=== PATIENT | female | born 1960 | race Caucasian/White ===

== ENCOUNTER 2024-01-05 08:23 | Observation (INO) | payer BC, MEDICARE ==
[2024-01-05] MEDS ORDERED: Sodium Chloride 0.9% 1000 ML 1,000 ML ONE (08:45)
[2024-01-05] MEDS ORDERED: BABY ASPIRIN 81 MG CHEW ONE (08:45)
[2024-01-05] MEDS ORDERED: XYLOCAINE VISCOUS 2% 15 ML CUP ONE (08:45)
[2024-01-05] MEDS ORDERED: Zofran 4 MG/2 ML VIAL ONE ×2 (08:45→08:50)
[2024-01-05] MEDS ORDERED: MAALOX ES 30 ML UNIT DOSE ONE (08:45)
[2024-01-05] MEDS ORDERED: MORPHINE SULFATE 4 MG INJ ONE (08:45)
[2024-01-05] MEDS: Zofran 4 MG/2 ML VIAL IV ONE (08:51)
--- NOTE | 2024-01-05 08:51 | ERPHSYRPT ---
- History of Present Illness Time Seen by Provider: 01/05/24 08:24 Source: patient Exam Limitations: no limitations Patient Subjective Stated Complaint: Pt began with a fever on Friday and began vomiting on Triage Nursing Assessment: Pt was brought to the ER by her [id number], hypertensive, rates pain as 6/10, N&V, severe heartburn, epigastric pain, last intake yesterday PM, denies diarrhea, hx of liver transplant Physician History: Patient here with midsternal chest pain. Started last night. Nausea and vomiting. However, patient states that she has felt unwell for almost a week. No falls no trauma. Patient states it feels like "heartburn". However, she states that she is never had heartburn before. There is no fevers no chills. States last p.o. intake was last night. Otherwise she is fully up-to-date on all her vaccinations, no signs or symptoms of a UTI. Allergies/Adverse Reactions: No Known Drug Allergies Allergy (Verified 01/05/24 08:35) Home Medications: Aripiprazole [Abilify] 2 mg PO DAILY 01/05/24 [History] Aspirin 81 mg PO DAILY 01/05/24 [History] Atorvastatin Calcium 40 mg PO DAILY 01/05/24 [History] Biotin 1 mg PO BID 01/05/24 [History] Escitalopram Oxalate 20 mg PO DAILY 01/05/24 [History] Furosemide [Lasix] 40 mg PO UD PRN 01/05/24 [History] Insulin Aspart 24 unit SQ TID 01/05/24 [History] Insulin Glargine,Hum.rec.anlog [Basaglar Kwikpen U-100] 0 unit SQ BID 01/05/24 [History] Lisinopril 10 mg [Zestril 10 MG] 10 mg PO DAILY 01/05/24 [History] Methylphenidate HCl [Methylphenidate ER] 10 mg PO BID 01/05/24 [History] Tacrolimus 2 mg PO BID 01/05/24 [History] Tirzepatide [Mounjaro] 5 mg SQ WEEKLY 01/05/24 [History] mycophenolate mofetiL [Mycophenolate Mofetil] 500 mg PO BID 01/05/24 [History] Hx Tetanus, Diphtheria Vaccination/Date Given: Yes Hx Influenza Vaccination/Date Given: Yes Hx Pneumococcal Vaccination/Date Given: No Travel Risk - International Travel Have you traveled outside of the country in past 3 weeks: No - Emerging Infectious Disease Are you exhibiting symptoms associated with any current EIDs: Yes Symptoms: Abdominal Pain, Vomitting - Past Medical History Pertinent Past Medical History: Yes Neurological History: No Pertinent History ENT History: No Pertinent History Cardiac History: High Cholesterol, Hypertension Respiratory History: No Pertinent History Endocrine Medical History: Diabetes Type II, Liver Disease Musculoskeletal History: Fractures GI Medical History: Cirrhosis, Other History: No Pertinent History Psycho-Social History: No Pertinent History Female Reproductive Disorders: No Pertinent History Other Medical History: FX LEFT HUMERUS WITH ORIF 2019, LIVER TRANSPLANT 06/16/2020 - Past Surgical History Past Surgical History: Yes Neuro Surgical History: No Pertinent History Cardiac: No Pertinent History Respiratory: No Pertinent History Gastrointestinal: Liver Transplant Genitourinary: No Pertinent History Musculoskeletal: Other Female Surgical History: Section Other Surgical History: place in left shoulder, liver transplant 2020, FX LEFT HUMERUS WITH ORIF 2019 - Social History Smoking Status: Never smoker Exposure to second hand smoke: No Drug Use: none Patient Lives Alone: No - Social Determinants of Health Will the patient participate in the screening: Yes Do you worry about a steady place to live?: No Do you have any problems with any of the following?: No known problems In the past 12 months,have you had to go without utilities?: No Transportation Issues: No Has anyone in your support network made you feel unsafe?: No Have you or anyone in your house had to go without enough: No - Nursing Vital Signs Nursing Vital Signs: Initial Vital Signs Temperature 98.0 F 01/05/24 08:28 Pulse Rate 83 01/05/24 08:28 Blood Pressure 142/98 01/05/24 08:28 O2 Sat by Pulse Oximetry 99 01/05/24 08:28 Pain Scale Pain Intensity 7 - Physical Exam SpO2 Interpretation: normal SpO2: 99 Comments: 01/05/24 08:50 Review of Systems Constitutional: Negative for fever. HENT: Negative for congestion. Respiratory: Negative for shortness of breath. Cardiovascular: Negative for chest pain. Gastrointestinal: Nausea and vomiting Genitourinary: Negative for dysuria. Musculoskeletal: Negative for back pain. Skin: Negative for rash. Neurological: Negative for headaches. Psychiatric/Behavioral: Negative for behavioral problems. All other systems reviewed and are negative. Physical Exam Vitals signs and nursing note reviewed. Constitutional: Appearance: Patient is well-developed. HENT: Head: Normocephalic and atraumatic. Eyes: Conjunctiva/sclera: Conjunctivae normal. Neck: Musculoskeletal: Normal range of motion. Trachea: No tracheal deviation. Cardiovascular: Rate and Rhythm: Normal rate. No reproducible chest pain Pulmonary: Effort: Pulmonary effort is normal. No respiratory distress. Abdominal: Palpations: Abdomen is soft. Diffuse nonspecific abdominal tenderness Musculoskeletal: General: No deformity. Skin: General: Skin is warm and dry. 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 Care 01/05/24 08:42 Active Code Status Order ROUTINE Care 01/05/24 12:23 Active EKG-ER Only STAT Care 01/05/24 08:41 Active IV Insertion STAT Care 01/05/24 08:[address] in Observation ROUTINE Care 01/05/24 12:24 Active ABDOMEN AND PELVIS W CONTRAST [CT] Stat Exams 01/05/24 09:47 Completed CHEST 1 VIEW (PORTABLE) Stat Exams 01/05/24 08:41 Completed CHEST WITH CONTRAST [CT] Stat Exams 01/05/24 09:47 Completed CBC W DIFF Stat Lab 01/05/24 08:40 Completed CK-Creatinine Phosphokinase Stat Lab 01/05/24 08:40 Completed CMP Stat Lab 01/05/24 08:40 Completed D-DIMER QUANTITATIVE Stat Lab 01/05/24 08:40 Completed LIPASE Stat Lab 01/05/24 08:40 Completed NT PRO BNPII Stat Lab 01/05/24 08:40 Completed TROPONIN Q4H Lab 01/05/24 08:40 Completed TROPONIN Q4H Lab 01/05/24 11:20 Completed TROPONIN Q4H Lab 01/05/24 16:45 Ordered Transfer Order Routine Transfer 01/05/24 Ordered Medication Summary Discontinued Medications Generic Name Dose Route Start Last Admin Trade Name Freq PRN Reason Stop Dose Admin Al Hydrox/Mg Hydrox/Simethicone Confirm 01/05/24 08:45 Mag Hydrox/Al Hydrox/Simeth 30 Ml Udcup Administered 01/05/24 08:46 Dose 30 ml .ROUTE .STK-MED ONE Aspirin 324 mg 01/05/24 08:41 01/05/24 08:54 Aspirin 81 Mg Tab.Chew PO 01/05/24 08:42 324 mg STAT ONE Administration Aspirin Confirm 01/05/24 08:45 Aspirin 81 Mg Tab.Chew Administered 01/05/24 08:46 Dose 324 mg .ROUTE .STK-MED ONE Sodium Chloride 1,000 mls @ 999 mls/hr 01/05/24 08:41 01/05/24 10:16 Sodium Chloride 0.9% 1000 Ml IV 01/05/24 09:41 Infused .Q1H1M STA Infusion Sodium Chloride Confirm 01/05/24 08:45 Sodium Chloride 0.9% 1000 Ml Administered 01/05/24 08:46 Dose 1,000 mls @ ud .ROUTE .STK-MED ONE Lidocaine HCl Confirm 01/05/24 08:45 Lidocaine Hcl 2% Viscous 15 Ml Udcup Administered 01/05/24 08:46 Dose 15 ml .ROUTE .STK-MED ONE Magnesium Hydroxide 45 ml 01/05/24 08:42 01/05/24 08:54 Mag Hydrx/Alum Hyd/Simeth/Lido 45 Ml Bottle PO 01/05/24 08:43 45 ml STAT ONE Administration Morphine Sulfate 4 mg 01/05/24 08:43 01/05/24 08:55 Morphine Sulfate 4 Mg/Ml Injection IV 01/05/24 08:44 4 mg STAT ONE Administration Morphine Sulfate Confirm 01/05/24 08:45 Morphine Sulfate 4 Mg/Ml Injection Administered 01/05/24 08:46 Dose 4 mg .ROUTE .STK-MED ONE Ondansetron HCl 8 mg 01/05/24 08:42 01/05/24 08:51 Ondansetron Hcl 4 Mg/2 Ml Vial IV 01/05/24 08:43 8 mg STAT ONE Administration Ondansetron HCl Confirm 01/05/24 08:45 Ondansetron Hcl 4 Mg/2 Ml Vial Administered 01/05/24 08:46 Dose 4 mg .ROUTE .STK-MED ONE Ondansetron HCl Confirm 01/05/24 08:50 Ondansetron Hcl 4 Mg/2 Ml Vial Administered 01/05/24 08:51 Dose 4 mg .ROUTE .STK-MED ONE Lab/Rad Data: Laboratory Result Diagrams 01/05/24 08:40 01/05/24 08:40 Laboratory Results 01/05/24 01/05/24 01/05/24 Range/Units 11:20 08:55 08:40 WBC (3.98-10.04) x10^3/uL RBC (3.93-5.22) x10^6/uL Hgb (11.2-15.7) g/dL Hct (34.1-44.9) % MCV (79.4-94.8) fL MCH (25.6-32.2) pg MCHC (32.2-35.5) g/dL RDW (11.7-14.4) % Plt Count (182-369) x10^3/uL MPV (9.4-12.3) fL Gran % (34.0-71.1) % Immature Gran % (Auto) (0.001-0.429) % Nucleat RBC Rel Count (0.00-0.2) % Eos # (Auto) (0.04-0.36) x10^3/uL Immature Gran # (Auto) (0.001-0.031) x10^3u/L Absolute Lymphs (auto) (1.18-3.74) x10^3/uL Absolute Monos (auto) (0.24-0.86) x10^3/uL Absolute Nucleated RBC (0.00-0.012) x10^3u/L Lymphocytes % (19.3-51.7) % Monocytes % (4.7-12.5) % Eosinophils % (0.7-5.8) % Basophils % (0.1-1.2) % Absolute Granulocytes (1.56-6.13) x10^3/uL Basophils # (0.01-0.08) x10^3/uL D-Dimer (0.0-0.50) mg/L Sodium (135-145) mmol/L Potassium (3.5-5.1) mmol/L Chloride (98-107) mmol/L Carbon Dioxide (22-30) mmol/L Anion Gap (5-15) MEQ/L BUN (7-17) mg/dL Creatinine (0.52-1.04) mg/dL Estimated GFR ML/MIN Glucose (74-106) mg/dL Calcium (8.4-10.2) mg/dL Total Bilirubin (0.2-1.3) mg/dL AST (14-36) U/L ALT (0-35) U/L Alkaline Phosphatase (38-126) U/L Creatine Kinase (30-135) U/L Troponin I < 0.012 < 0.012 (0.000-0.033) ng/mL NT-Pro-B Natriuret Pep (<300) pg/mL Serum Total Protein (6.3-8.2) g/dL Albumin (3.5-5.0) g/dL Lipase (23-300) U/L Influenza Type A Ag NEGATIVE (NEGATIVE) Influenza Type B Ag NEGATIVE (NEGATIVE) RSV (PCR) NEGATIVE (NEGATIVE) SARS-CoV-2 (PCR) NEGATIVE (NEGATIVE) 01/05/24 01/05/24 01/05/24 Range/Units 08:40 08:40 08:40 WBC 9.1 (3.98-10.04) x10^3/uL RBC 3.97 (3.93-5.22) x10^6/uL Hgb 11.9 (11.2-15.7) g/dL Hct 34.4 (34.1-44.9) % MCV 86.6 (79.4-94.8) fL MCH 30.0 (25.6-32.2) pg MCHC 34.6 (32.2-35.5) g/dL RDW 14.7 H (11.7-14.4) % Plt Count 158 L (182-369) x10^3/uL MPV 9.9 (9.4-12.3) fL Gran % 76.4 H (34.0-71.1) % Immature Gran % (Auto) 0.4 (0.001-0.429) % Nucleat RBC Rel Count 0.0 (0.00-0.2) % Eos # (Auto) 0.17 (0.04-0.36) x10^3/uL Immature Gran # (Auto) 0.04 H (0.001-0.031) x10^3u/L Absolute Lymphs (auto) 1.38 (1.18-3.74) x10^3/uL Absolute Monos (auto) 0.54 (0.24-0.86) x10^3/uL Absolute Nucleated RBC 0.00 (0.00-0.012) x10^3u/L Lymphocytes % 15.1 L (19.3-51.7) % Monocytes % 5.9 (4.7-12.5) % Eosinophils % 1.9 (0.7-5.8) % Basophils % 0.3 (0.1-1.2) % Absolute Granulocytes 6.97 H (1.56-6.13) x10^3/uL Basophils # 0.03 (0.01-0.08) x10^3/uL D-Dimer 1.24 H* (0.0-0.50) mg/L Sodium 131 L (135-145) mmol/L Potassium 3.8 (3.5-5.1) mmol/L Chloride 93 L (98-107) mmol/L Carbon Dioxide 27 (22-30) mmol/L Anion Gap 14.8 (5-15) MEQ/L BUN 34 H (7-17) mg/dL Creatinine 1.17 H (0.52-1.04) mg/dL Estimated GFR 52.8 ML/MIN Glucose 225 H (74-106) mg/dL Calcium 9.0 (8.4-10.2) mg/dL Total Bilirubin 1.40 H (0.2-1.3) mg/dL AST 28 (14-36) U/L ALT 26 (0-35) U/L Alkaline Phosphatase 162 H (38-126) U/L Creatine Kinase 92 (30-135) U/L Troponin I (0.000-0.033) ng/mL NT-Pro-B Natriuret Pep 82.2 (<300) pg/mL Serum Total Protein 7.3 (6.3-8.2) g/dL Albumin 4.2 (3.5-5.0) g/dL Lipase 114 (23-300) U/L Influenza Type A Ag (NEGATIVE) Influenza Type B Ag (NEGATIVE) RSV (PCR) (NEGATIVE) SARS-CoV-2 (PCR) (NEGATIVE) - Progress Progress: improved Progress Note: 01/05/24 08:50 Differential diagnosis includes: PNA, STEMI, NSTEMI, other infection, musculo skeletal pain, pneumothorax - We'll obtain basic labs, fluids, EKG, troponin, chest x-ray - EKG shows no ST changes - my read - O2 saturations consistently greater than 95%. - CXR shows no pneumonia, pneumothorax - my read 01/05/24 12:33 Patient did have 2 negative troponins here. Patient's D-dimer was elevated. Therefore we did obtain a CTA of the chest and CT abdomen pelvis. This did not show any acute pulmonary embolism, aortic dissection, other infection. Patient's pain is now a 2 out of 10. It was a 7 out of 10 when she first came in. Patient's heart score is a 4. Given this I do believe patient will need to be admitted for full cardiac rule out, potential stress test, echocardiogram, admission to the hospital. I did discuss all this with the on-call telemetry hospitalist, Dr. Leroy. Counseled pt/family regarding: lab results, diagnosis, need for follow-up, rad results - Departure Departure Disposition: Observation Clinical Impression: Chest pain with high risk for cardiac etiology Condition: Stable Critical Care Time: No Referrals: RENA BANKS, [Primary Care Provider] - Follow up/PCP as directed
[2024-01-05] MEDS: Sodium Chloride 0.9% 1000 ML 1,000 ML IV STA (08:53)
[2024-01-05] MEDS: BABY ASPIRIN 81 MG CHEW PO ONE (08:54)
[2024-01-05] MEDS: GI COCKTAIL 45 ML (Maalox/Lidocaine) PO ONE (08:54)
[2024-01-05] MEDS: MORPHINE SULFATE 4 MG INJ IV ONE (08:55)
[2024-01-05 08:58] LABS: Absolute Neutrophil Ct (ANC) 6.97 x10^3/uL (1.56-6.13); BASOPHIL % 0.3 % (0.1-1.2); Basophil (Absolute #) 0.03 x10^3/uL (0.01-0.08); Eosinophil % 1.9 % (0.7-5.8); Eosinophil (Absolute #) 0.17 x10^3/uL (0.04-0.36); Hematocrit 34.4 % (34.1-44.9); Hemoglobin 11.9 g/dL (11.2-15.7); IMMATURE GRAN # 0.04 x10^3u/L (0.001-0.031); IMMATURE GRAN % 0.4 % (0.001-0.429); Lymphocyte (Absolute #) 1.38 x10^3/uL (1.18-3.74); Lymphocytes % 15.1 % (19.3-51.7); Mean Cell Volume 86.6 fL (79.4-94.8); Mean Corpuscular Hgb Concent. 34.6 g/dL (32.2-35.5); Mean Platelet Volume 9.9 fL (9.4-12.3); Monocyte (Absolute #) 0.54 x10^3/uL (0.24-0.86); Monocytes % 5.9 % (4.7-12.5); Neutrophil % 76.4 % (34.0-71.1); Platelet Count 158 x10^3/uL (182-369); Red Blood Count 3.97 x10^6/uL (3.93-5.22); Red Cell Distribution Width 14.7 % (11.7-14.4); White Blood Count 9.1 x10^3/uL (3.98-10.04)
[2024-01-05 09:19] LABS: ALBUMIN 4.2 g/dL (3.5-5.0); ANION GAP 14.8 MEQ/L (5-15); BILIRUBIN,TOTAL 1.4 mg/dL (0.2-1.3); Creatinine 1 1.17 mg/dL (0.52-1.04); EST GLOMERULAR FILTRATION RATE 52.8 ML/MIN; NT PRO BNPII 82.2 pg/mL (<300); Potassium 3.8 mmol/L (3.5-5.1); Total Protein 7.3 g/dL (6.3-8.2)
--- NOTE | 2024-01-05 09:24 | XRAY ---
Indication: Chest pain. Comparison: None Portable chest demonstrates normal heart and lungs. Bony thorax intact with osteopenia, mild degenerative changes, minimal levoscoliosis, and incompletely visualized old left humerus shaft fracture.
[2024-01-05 09:41] LABS: INFLUENZA A NEGATIVE (NEGATIVE); SARS-CoV-2 Xpert Express NEGATIVE (NEGATIVE)
[2024-01-05 09:42] LABS: INFLUENZA B NEGATIVE (NEGATIVE); RESPIRATORY SYNCTIAL VIRUS NEGATIVE (NEGATIVE)
--- NOTE | 2024-01-05 11:41 | XRAY ---
Indication: Elevated d-dimer. Pulmonary embolus. Multiple contiguous axial images obtained through the chest using 80 cc Isovue 370 contrast and PE protocol. Comparison: None Good opacification pulmonary arteries to include the lobar and segmental branches. No pulmonary embolus. Heart not enlarged. Aorta is normal in course and caliber. Small right hilar calcified node. No pathologic mediastinal/hilar lymphadenopathy. Lungs demonstrates mild bilateral dependent atelectasis and small right lower lobe calcified granuloma. No suspicious pulmonary mass/nodule, infiltrate, or effusion. Bony thorax intact with minimal degenerative changes throughout spine. CT abdomen/pelvis reported separately. Impression: 1. Negative pulmonary embolus. No acute cardiopulmonary abnormalities. 2. Chronic findings including degenerative spondylosis and old granulomatous disease.
--- NOTE | 2024-01-05 11:49 | XRAY ---
Indication: Pain, nausea, and vomiting. Multiple contiguous axial images obtained through the abdomen and pelvis using 80 cc Isovue 370 contrast and PE protocol. Comparison: None CT chest reported separately. Noncontrasted stomach and bowel loops appear nonobstructed. Radiopacities throughout the colon and appendix either ingested medication/bismuth versus barium. Spleen is enlarged measuring 15 cm with tiny calcific granulomas. Left upper quadrant splenorenal varices. Portal vein diameter is 1.8 cm. Previous cholecystectomy with mild biliary tree prominence. Common bile duct measures 1 cm diameter. Pelvis demonstrates tubal ligation clips. No free fluid/air. Remaining liver, pancreas, spleen, adrenal glands, kidneys, ureters, bladder, and uterus are unremarkable. Minimal distal aortic calcifications. No AAA or pathologic retroperitoneal lymphadenopathy. Visualized osseous structures intact with mild multilevel lumbar degenerative spondylosis including 3 mm anterolisthesis L4 on L5. Incidental L4 limbus vertebrae. No ventral or inguinal hernias. Impression: 1. Radiopacities throughout colon and appendix either ingested medication/bismuth versus barium. 2. CT findings favoring portal hypertension including splenomegaly and splenorenal varices. 3. Mild biliary tree prominence. Correlate clinically. 4. Incidental arteriosclerotic disease, chronic bony findings, and old granulomatous disease.
[2024-01-05 13:57] VITALS: RESP 16
--- NOTE | 2024-01-05 14:01 | PCM.SSS ---
History of Present Illness - Chief Complaint Chief Complaint: chest pain rule out Date: 01/05/24 History of Present Illness: is a 63 year old female with pmhx of Type II DM, liver transplant ( idiopathic cause), depression, HTN, hyperlipidemia, and obesity. Patient here with midsternal chest pain. Started last night. Nausea and vomiting. However, patient states that she has felt unwell for almost a week. No falls no trauma. Patient states it feels like "heartburn". However, she states that she is never had heartburn before. There is no fevers no chills. States last p.o. intake was last night. Otherwise she is fully up-to-date on all her vaccinations, no signs or symptoms of a UTI. Since admission CP has resolved and Trop x2 negative. Heartburn and N/V has resolved with meds gave in ER. Awaiting 3rd trop. If negative she could possibly d/c today. - Review of Systems Constitutional: No Fever, No Chills Eyes: No Symptoms Ears, Nose, & Throat: No Symptoms Respiratory: No Cough, No Short Of Breath Cardiac: Chest Pain, No Edema, No Syncope Abdominal/Gastrointestinal: Nausea, Vomiting, No Abdominal Pain, No Diarrhea Genitourinary Symptoms: No Dysuria Musculoskeletal: No Back Pain, No Neck Pain Skin: No Rash Neurological: No Dizziness, No Focal Weakness, No Sensory Changes Psychological: No Symptoms Endocrine: No Symptoms Hematologic/Lymphatic: No Symptoms Immunological/Allergic: No Symptoms Medications & Allergies Home Medications: Home Medication List Aripiprazole [Abilify] 2 mg PO HS 01/05/24 [History Confirmed 01/05/24] Aspirin 81 mg PO DAILY 01/05/24 [History Confirmed 01/05/24] Atorvastatin Calcium 40 mg PO DAILY 01/05/24 [History Confirmed 01/05/24] Biotin 1 mg PO BID 01/05/24 [History Confirmed 01/05/24] Escitalopram Oxalate 20 mg PO DAILY 01/05/24 [History Confirmed 01/05/24] Famotidine 20 mg [Pepcid 20 MG] 20 mg PO BID PRN PRN 30 Days #60 tablet 01/05/24 [Rx] Furosemide [Lasix] 40 mg PO UD PRN 01/05/24 [History Confirmed 01/05/24] Insulin Aspart 24 unit SQ TID 01/05/24 [History Confirmed 01/05/24] Insulin Glargine,Hum.rec.anlog [Gamalielaglfrancia Gibbs U-100] 0 unit SQ BID 01/05/24 [History Confirmed 01/05/24] Lisinopril 10 mg [Zestril 10 MG] 10 mg PO DAILY 01/05/24 [History Confirmed 01/05/24] Methylphenidate HCl [Methylphenidate ER] 10 mg PO BID 01/05/24 [History Confirmed 01/05/24] Potassium Chloride 20 meq PO BID 3 Days #6 tablet 01/05/24 [Rx] Tacrolimus 2 mg PO BID 01/05/24 [History Confirmed 01/05/24] Tirzepatide [Mounjaro] 5 mg SQ WEEKLY 01/05/24 [History Confirmed 01/05/24] mycophenolate mofetiL [Mycophenolate Mofetil] 500 mg PO BID 01/05/24 [History Confirmed 01/05/24] Allergies/Adverse Reactions: Allergies Allergy/AdvReac Type Severity Reaction Status Date / Time No Known Drug Allergies Allergy Verified 01/05/24 08:35 - Past Medical History Past Medical History: Yes Neurological History: No Pertinent History ENT History: No Pertinent History Cardiac History: High Cholesterol, Hypertension Respiratory History: No Pertinent History Endocrine Medical History: Diabetes Type II, Liver Disease Musculoskelatal History: Fractures GI Medical History: Cirrhosis, Other History: No Pertinent History Pyscho-Social History: No Pertinent History Reproductive Disorders: No Pertinent History Comment: FX LEFT HUMERUS WITH ORIF 2019, LIVER TRANSPLANT 06/16/2020 - Past Surgical History Past Surgical History: Yes Neuro Surgical History: No Pertinent History Cardiac History: No Pertinent History Respiratory Surgery: No Pertinent History GI Surgical History: Liver Transplant Genitourinary Surgical Hx: No Pertinent History Musculskeletal Surgical Hx: Other Female Surgical History: Section Other Surgical History: place in left shoulder, liver transplant 2020, FX LEFT HUMERUS WITH ORIF 2019 - Social History Smoking Status: Never smoker Exposure to second hand smoke: No Alcohol: None Drug Use: none - Social Determinants of Health Will the patient participate in the screening: Yes Do you worry about a steady place to live?: No Do you have any problems with any of the following?: No known problems In the past 12 months,have you had to go without utilities?: No Have you or anyone in your house had to go without enough: No Transportation Issues: No Has anyone in your support network made you feel unsafe?: No - Physical Exam Vital Signs: Vital Signs - 24 hr Temp Pulse Resp BP BP Pulse Ox 01/05/24 13:00 72 21 145/82 96 01/05/24 12:35 99 01/05/24 12:30 75 18 135/67 71 L 01/05/24 12:00 75 18 119/76 98 01/05/24 11:30 75 16 139/74 100 01/05/24 11:00 78 15 123/76 97 01/05/24 10:45 79 21 153/73 97 01/05/24 10:00 74 19 143/82 100 01/05/24 09:30 76 16 150/87 100 01/05/24 09:00 76 18 148/80 99 01/05/24 08:30 89 142/98 99 01/05/24 08:28 98.0 F 83 142/98 99 General Appearance: no apparent distress, alert, obese Neurologic Exam: alert, oriented x 3, cooperative, normal mood/affect, nml cerebellar function, nml station & gait, sensation nml, No motor deficits Eye Exam: PERRL/EOMI, eyes nml inspection Ears, Nose, Throat Exam: normal ENT inspection, TMs normal, pharynx normal, moist mucous membranes Neck Exam: normal inspection, non-tender, supple, full range of motion Respiratory Exam: normal breath sounds, lungs clear, No respiratory distress Cardiovascular Exam: regular rate/rhythm, normal heart sounds, normal peripheral pulses Gastrointestinal/Abdomen Exam: soft, normal bowel sounds, No tenderness, No mass Back Exam: normal inspection, normal range of motion, No CVA tenderness, No vertebral tenderness Extremity Exam: normal inspection, normal range of motion, pelvis stable Skin Exam: normal color, warm, dry, No rash Lymphatic Exam: No adenopathy Results - Labs Lab/Micro Results: Lab Results-Last 24 Hours 01/05/24 01/05/24 01/05/24 Range/Units 08:40 08:40 08:40 WBC 9.1 (3.98-10.04) x10^3/uL RBC 3.97 (3.93-5.22) x10^6/uL Hgb 11.9 (11.2-15.7) g/dL Hct 34.4 (34.1-44.9) % MCV 86.6 (79.4-94.8) fL MCH 30.0 (25.6-32.2) pg MCHC 34.6 (32.2-35.5) g/dL RDW 14.7 H (11.7-14.4) % Plt Count 158 L (182-369) x10^3/uL MPV 9.9 (9.4-12.3) fL Gran % 76.4 H (34.0-71.1) % Immature Gran % (Auto) 0.4 (0.001-0.429) % Nucleat RBC Rel Count 0.0 (0.00-0.2) % Eos # (Auto) 0.17 (0.04-0.36) x10^3/uL Immature Gran # (Auto) 0.04 H (0.001-0.031) x10^3u/L Absolute Lymphs (auto) 1.38 (1.18-3.74) x10^3/uL Absolute Monos (auto) 0.54 (0.24-0.86) x10^3/uL Absolute Nucleated RBC 0.00 (0.00-0.012) x10^3u/L Lymphocytes % 15.1 L (19.3-51.7) % Monocytes % 5.9 (4.7-12.5) % Eosinophils % 1.9 (0.7-5.8) % Basophils % 0.3 (0.1-1.2) % Absolute Granulocytes 6.97 H (1.56-6.13) x10^3/uL Basophils # 0.03 (0.01-0.08) x10^3/uL D-Dimer 1.24 H* (0.0-0.50) mg/L Sodium 131 L (135-145) mmol/L Potassium 3.8 (3.5-5.1) mmol/L Chloride 93 L (98-107) mmol/L Carbon Dioxide 27 (22-30) mmol/L Anion Gap 14.8 (5-15) MEQ/L BUN 34 H (7-17) mg/dL Creatinine 1.17 H (0.52-1.04) mg/dL Estimated GFR 52.8 ML/MIN Glucose 225 H (74-106) mg/dL Calcium 9.0 (8.4-10.2) mg/dL Total Bilirubin 1.40 H (0.2-1.3) mg/dL AST 28 (14-36) U/L ALT 26 (0-35) U/L Alkaline Phosphatase 162 H (38-126) U/L Creatine Kinase 92 (30-135) U/L Troponin I (0.000-0.033) ng/mL NT-Pro-B Natriuret Pep 82.2 (<300) pg/mL Serum Total Protein 7.3 (6.3-8.2) g/dL Albumin 4.2 (3.5-5.0) g/dL Lipase 114 (23-300) U/L Influenza Type A Ag (NEGATIVE) Influenza Type B Ag (NEGATIVE) RSV (PCR) (NEGATIVE) SARS-CoV-2 (PCR) (NEGATIVE) 01/05/24 01/05/24 01/05/24 Range/Units 08:40 08:55 11:20 WBC (3.98-10.04) x10^3/uL RBC (3.93-5.22) x10^6/uL Hgb (11.2-15.7) g/dL Hct (34.1-44.9) % MCV (79.4-94.8) fL MCH (25.6-32.2) pg MCHC (32.2-35.5) g/dL RDW (11.7-14.4) % Plt Count (182-369) x10^3/uL MPV (9.4-12.3) fL Gran % (34.0-71.1) % Immature Gran % (Auto) (0.001-0.429) % Nucleat RBC Rel Count (0.00-0.2) % Eos # (Auto) (0.04-0.36) x10^3/uL Immature Gran # (Auto) (0.001-0.031) x10^3u/L Absolute Lymphs (auto) (1.18-3.74) x10^3/uL Absolute Monos (auto) (0.24-0.86) x10^3/uL Absolute Nucleated RBC (0.00-0.012) x10^3u/L Lymphocytes % (19.3-51.7) % Monocytes % (4.7-12.5) % Eosinophils % (0.7-5.8) % Basophils % (0.1-1.2) % Absolute Granulocytes (1.56-6.13) x10^3/uL Basophils # (0.01-0.08) x10^3/uL D-Dimer (0.0-0.50) mg/L Sodium (135-145) mmol/L Potassium (3.5-5.1) mmol/L Chloride (98-107) mmol/L Carbon Dioxide (22-30) mmol/L Anion Gap (5-15) MEQ/L BUN (7-17) mg/dL Creatinine (0.52-1.04) mg/dL Estimated GFR ML/MIN Glucose (74-106) mg/dL Calcium (8.4-10.2) mg/dL Total Bilirubin (0.2-1.3) mg/dL AST (14-36) U/L ALT (0-35) U/L Alkaline Phosphatase (38-126) U/L Creatine Kinase (30-135) U/L Troponin I < 0.012 < 0.012 (0.000-0.033) ng/mL NT-Pro-B Natriuret Pep (<300) pg/mL Serum Total Protein (6.3-8.2) g/dL Albumin (3.5-5.0) g/dL Lipase (23-300) U/L Influenza Type A Ag NEGATIVE (NEGATIVE) Influenza Type B Ag NEGATIVE (NEGATIVE) RSV (PCR) NEGATIVE (NEGATIVE) SARS-CoV-2 (PCR) NEGATIVE (NEGATIVE) - Radiology Impressions Radiology Exams & Impressions: Radiology Procedures Category Date Time Status ABDOMEN AND PELVIS W CONTRAST [CT] Stat Exams 01/05/24 09:47 Completed CHEST 1 VIEW (PORTABLE) Stat Exams 01/05/24 08:41 Completed CHEST WITH CONTRAST [CT] Stat Exams 01/05/24 09:47 Completed ECHO W/2D AND DOPPLER [US] Routine Exams 01/05/24 12:56 Taken Assessment/Plan (1) Chest pain Current Visit: Yes Status: Acute Assessment & Plan: - possibly 2:2 heartburn- GI cocktail gave in ER and sxs resolved - Echo - Trop x3 negative - ASA 324mg in ER - EKG, Tele - CXR: Portable chest demonstrates normal heart and lungs. Bony thorax intact with osteopenia, mild degenerative changes, minimal levoscoliosis, and incompletely visualized old left humerus shaft fracture. Code(s): R07.9 - CHEST PAIN, UNSPECIFIED (2) Elevated d-dimer Current Visit: Yes Status: Acute Assessment & Plan: - CT Chest: Impression: 1. Negative pulmonary embolus. No acute cardiopulmonary abnormalities. 2. Chronic findings including degenerative spondylosis and old granulomatous disease. Code(s): R79.89 - OTHER SPECIFIED ABNORMAL FINDINGS OF BLOOD CHEMISTRY (3) Nausea & vomiting Current Visit: Yes Status: Acute Assessment & Plan: - CT abd/pelvis: Impression: 1. Radiopacities throughout colon and appendix either ingested medication/bismuth versus barium. 2. CT findings favoring portal hypertension including splenomegaly and splenorenal varices. 3. Mild biliary tree prominence. Correlate clinically. 4. Incidental arteriosclerotic disease, chronic bony findings, and old granulomatous disease. - Zofran - GI cocktail in ER Code(s): R11.2 - NAUSEA WITH VOMITING, UNSPECIFIED (4) Liver transplant recipient Current Visit: Yes Status: Acute Assessment & Plan: - Continue home meds Code(s): Z94.4 - LIVER TRANSPLANT STATUS (5) SANG (acute kidney injury) Current Visit: Yes Status: Acute Assessment & Plan: - 1LNS IV bolus gave in ER - Cont IVF NS @ 100 Code(s): N17.9 - ACUTE KIDNEY FAILURE, UNSPECIFIED (6) Type II diabetes mellitus Current Visit: Yes Status: Acute Assessment & Plan: - A1C- pending - S/S insulin, accuchecks ac/hs (7) Thrombocytopenia Current Visit: Yes Status: Acute Assessment & Plan: - 2:[address]- will need OP F/U (8) Obesity (BMI 30-39.9) Current Visit: Yes Status: Acute Assessment & Plan: - advised ADA diet and exercise control Code(s): E66.9 - OBESITY, UNSPECIFIED (9) Hypokalemia Current Visit: Yes Status: Acute Assessment & Plan: - K+ 3.2- replaced - will d/c with replacement. Code(s): E87.6 - HYPOKALEMIA Hospital Summary - Hospital Course Hospital Course: is a 63 year old female with pmhx of Type II DM, liver transplant, depression, HTN, hyperlipidemia, and obesity. Patient here with midsternal chest pain. Started last night. Nausea and vomiting. However, patient states that she has felt unwell for almost a week. No falls no trauma. Patient states it feels like "heartburn". However, she states that she is never had heartburn before. There is no fevers no chills. States last p.o. intake was last night. Otherwise she is fully up-to-date on all her vaccinations, no signs or symptoms of a UTI. Since admission CP has resolved and Trop x2 negative. Heartburn and N/V has resolved with meds gave in ER. Trop x3 negative. K+ replaced and will d/c with potassium chloride PO for 3 days. She is wanting to d/c today. She will f/u with PCP this week. She denies any further concerns at this time. - Vitals & Intake/Output Vital Signs: Vital Signs Temperature 98.0 F 01/05/24 08:28 Pulse Rate 72 01/05/24 13:00 Respiratory Rate 21 01/05/24 13:00 Blood Pressure 145/82 01/05/24 13:00 O2 Sat by Pulse Oximetry 96 01/05/24 13:00 Intake & Output: Intake & Output 01/03/24 01/04/24 01/05/24 01/06/24 11:59 11:59 11:59 11:59 Weight 84.822 kg - Lab Result Diagrams: 01/05/24 08:40 01/05/24 16:40 Lab Results-Last 24 Hrs: Lab Results-Last 24 Hours 01/05/24 01/05/24 01/05/24 Range/Units 08:40 08:40 08:40 WBC 9.1 (3.98-10.04) x10^3/uL RBC 3.97 (3.93-5.22) x10^6/uL Hgb 11.9 (11.2-15.7) g/dL Hct 34.4 (34.1-44.9) % MCV 86.6 (79.4-94.8) fL MCH 30.0 (25.6-32.2) pg MCHC 34.6 (32.2-35.5) g/dL RDW 14.7 H (11.7-14.4) % Plt Count 158 L (182-369) x10^3/uL MPV 9.9 (9.4-12.3) fL Gran % 76.4 H (34.0-71.1) % Immature Gran % (Auto) 0.4 (0.001-0.429) % Nucleat RBC Rel Count 0.0 (0.00-0.2) % Eos # (Auto) 0.17 (0.04-0.36) x10^3/uL Immature Gran # (Auto) 0.04 H (0.001-0.031) x10^3u/L Absolute Lymphs (auto) 1.38 (1.18-3.74) x10^3/uL Absolute Monos (auto) 0.54 (0.24-0.86) x10^3/uL Absolute Nucleated RBC 0.00 (0.00-0.012) x10^3u/L Lymphocytes % 15.1 L (19.3-51.7) % Monocytes % 5.9 (4.7-12.5) % Eosinophils % 1.9 (0.7-5.8) % Basophils % 0.3 (0.1-1.2) % Absolute Granulocytes 6.97 H (1.56-6.13) x10^3/uL Basophils # 0.03 (0.01-0.08) x10^3/uL D-Dimer 1.24 H* (0.0-0.50) mg/L Sodium 131 L (135-145) mmol/L Potassium 3.8 (3.5-5.1) mmol/L Chloride 93 L (98-107) mmol/L Carbon Dioxide 27 (22-30) mmol/L Anion Gap 14.8 (5-15) MEQ/L BUN 34 H (7-17) mg/dL Creatinine 1.17 H (0.52-1.04) mg/dL Estimated GFR 52.8 ML/MIN Glucose 225 H (74-106) mg/dL Calcium 9.0 (8.4-10.2) mg/dL Total Bilirubin 1.40 H (0.2-1.3) mg/dL AST 28 (14-36) U/L ALT 26 (0-35) U/L Alkaline Phosphatase 162 H (38-126) U/L Creatine Kinase 92 (30-135) U/L Troponin I (0.000-0.033) ng/mL NT-Pro-B Natriuret Pep 82.2 (<300) pg/mL Serum Total Protein 7.3 (6.3-8.2) g/dL Albumin 4.2 (3.5-5.0) g/dL Lipase 114 (23-300) U/L Influenza Type A Ag (NEGATIVE) Influenza Type B Ag (NEGATIVE) RSV (PCR) (NEGATIVE) SARS-CoV-2 (PCR) (NEGATIVE) 01/05/24 01/05/24 01/05/24 Range/Units 08:40 08:55 11:20 WBC (3.98-10.04) x10^3/uL RBC (3.93-5.22) x10^6/uL Hgb (11.2-15.7) g/dL Hct (34.1-44.9) % MCV (79.4-94.8) fL MCH (25.6-32.2) pg MCHC (32.2-35.5) g/dL RDW (11.7-14.4) % Plt Count (182-369) x10^3/uL MPV (9.4-12.3) fL Gran % (34.0-71.1) % Immature Gran % (Auto) (0.001-0.429) % Nucleat RBC Rel Count (0.00-0.2) % Eos # (Auto) (0.04-0.36) x10^3/uL Immature Gran # (Auto) (0.001-0.031) x10^3u/L Absolute Lymphs (auto) (1.18-3.74) x10^3/uL Absolute Monos (auto) (0.24-0.86) x10^3/uL Absolute Nucleated RBC (0.00-0.012) x10^3u/L Lymphocytes % (19.3-51.7) % Monocytes % (4.7-12.5) % Eosinophils % (0.7-5.8) % Basophils % (0.1-1.2) % Absolute Granulocytes (1.56-6.13) x10^3/uL Basophils # (0.01-0.08) x10^3/uL D-Dimer (0.0-0.50) mg/L Sodium (135-145) mmol/L Potassium (3.5-5.1) mmol/L Chloride (98-107) mmol/L Carbon Dioxide (22-30) mmol/L Anion Gap (5-15) MEQ/L BUN (7-17) mg/dL Creatinine (0.52-1.04) mg/dL Estimated GFR ML/MIN Glucose (74-106) mg/dL Calcium (8.4-10.2) mg/dL Total Bilirubin (0.2-1.3) mg/dL AST (14-36) U/L ALT (0-35) U/L Alkaline Phosphatase (38-126) U/L Creatine Kinase (30-135) U/L Troponin I < 0.012 < 0.012 (0.000-0.033) ng/mL NT-Pro-B Natriuret Pep (<300) pg/mL Serum Total Protein (6.3-8.2) g/dL Albumin (3.5-5.0) g/dL Lipase (23-300) U/L Influenza Type A Ag NEGATIVE (NEGATIVE) Influenza Type B Ag NEGATIVE (NEGATIVE) RSV (PCR) NEGATIVE (NEGATIVE) SARS-CoV-2 (PCR) NEGATIVE (NEGATIVE) - Radiology Exams Ordered Rad Exams-Entire Visit: Radiology Procedures Category Date Time Status ABDOMEN AND PELVIS W CONTRAST [CT] Stat Exams 01/05/24 09:47 Completed CHEST 1 VIEW (PORTABLE) Stat Exams 01/05/24 08:41 Completed CHEST WITH CONTRAST [CT] Stat Exams 01/05/24 09:47 Completed ECHO W/2D AND DOPPLER [US] Routine Exams 01/05/24 12:56 Taken - Discharge Discharge Date: 01/05/24 Disposition: Home, Self-Care Condition: Stable Prescriptions: New Famotidine 20 mg [Pepcid 20 MG] 20 mg PO BID PRN PRN 30 Days #60 tablet PRN Reason: Indigestion Continue Lisinopril 10 mg [Zestril 10 MG] 10 mg PO DAILY Insulin Glargine,Hum.rec.anlog [Gamalielaglar Micaelapen U-100] 0 unit SQ BID Insulin Aspart 24 unit SQ TID Furosemide [Lasix] 40 mg PO UD PRN PRN Reason: swelling Escitalopram Oxalate 20 mg PO DAILY Biotin 1 mg PO BID Tirzepatide [Mounjaro] 5 mg SQ WEEKLY Atorvastatin Calcium 40 mg PO DAILY Aspirin 81 mg PO DAILY mycophenolate mofetiL [Mycophenolate Mofetil] 500 mg PO BID Methylphenidate HCl [Methylphenidate ER] 10 mg PO BID Aripiprazole [Abilify] 2 mg PO HS Tacrolimus 2 mg PO BID Follow up with: RENA BANKS DO [Primary Care Provider] -
[2024-01-05] MEDS ORDERED: HUMALOG SQ PRN (14:10)
[2024-01-05] MEDS ORDERED: Lasix 40 MG PO PRN (14:18)
[2024-01-05] MEDS ORDERED: MEDICATION INTERVENTION MC SCH ×4 (14:30→14:45)
[2024-01-05] MEDS ORDERED: NON-FORMULARY ITEM (Tirzepatide [Mounjaro] 5 MG/0.5 ML Pen.Injctr) SQ SCH (14:30)
[2024-01-05] MEDS: Sodium Chloride 0.9% 1000 ML 1,000 ML IV SCH (15:41)
[2024-01-05] MEDS: Zestril 10 MG PO SCH (15:42)
[2024-01-05] MEDS: Pepcid 20 MG PO SCH (15:42)
[2024-01-05] MEDS: Lexapro PO SCH (15:43)
[2024-01-05] MEDS: ZOCOR 20MG PO SCH (15:59)
[2024-01-05 16:03] VITALS: BP 131/58; PULSE 72; TEMP 97.6; O2SAT 98
[2024-01-05 17:14] LABS: ALBUMIN 3.7 g/dL (3.5-5.0); ANION GAP 10.9 MEQ/L (5-15); BILIRUBIN,TOTAL 0.9 mg/dL (0.2-1.3); Calcium 8.5 mg/dL (8.4-10.2); Creatinine 1 1.1 mg/dL (0.52-1.04); EST GLOMERULAR FILTRATION RATE 56.8 ML/MIN; Potassium 3.2 mmol/L (3.5-5.1); Total Protein 6.6 g/dL (6.3-8.2)
[2024-01-05] MEDS: Ritalin 5 MG PO SCH (17:16)
[2024-01-05] MEDS: Zofran 4 MG/2 ML VIAL IV PRN (17:20)
[2024-01-05] MEDS ORDERED: Klor Con ONE (17:54)
[2024-01-05] MEDS: Klor Con PO ONE (17:56)
[2024-01-05] MEDS ORDERED: MYCOPHENOLATE MOFETIL 500 MG PO SCH (22:00)
[2024-01-05] MEDS ORDERED: BIOTIN 1 MG PO SCH (22:00)
[2024-01-05] MEDS ORDERED: Abilify 10 MG PO SCH (22:00)
[2024-01-05] MEDS ORDERED: TACROLIMUS 1 MG PO SCH (22:00)
[2024-01-06] MEDS ORDERED: ECOTRIN 81 MG PO SCH (10:00)
== END 2024-01-05 18:25 | disposition home or self-care (01) ==
LOC: ED 08:23 → MED SURG 13:40
PROVIDERS: ADMIT Internal Medicine; ATTEND Internal Medicine
DX: R07.9 Chest pain, unspecified (principal); R79.89 Other specified abnormal findings of blood chemistry; R11.2 Nausea with vomiting, unspecified; E78.5 Hyperlipidemia, unspecified; I10 Essential (primary) hypertension; E11.9 Type 2 diabetes mellitus without complications; E66.9 Obesity, unspecified; E87.6 Hypokalemia; D69.6 Thrombocytopenia, unspecified; Z79.899 Other long term (current) drug therapy; Z94.4 Liver transplant status
CPT/HCPCS: 0241U; 36000; 36415; 71045; 71260; 74177; 80053; 82550; 82947; 83036; 83690; 83880; 84484; 85025; 85379; 93005; 93041; 93306; 96360; 96374; 96375; 99285; J2270; J2405; A9270-GY